=== PATIENT | male | born 2000 | race African-American/Black ===

== ENCOUNTER 2018-09-05 21:23 | Emergency (ER) | payer SELFPAY ==
[2018-09-05] MEDS ORDERED: cefTRIAXone SODIUM 250 MG INJ IM ONE (21:57)
[2018-09-05] MEDS ORDERED: AZITHROMYCIN 250 MG TABLET PO ONE (21:58)
--- NOTE | 2018-09-05 22:02 | ED Physician Documentation ---
General Adult - HISTORIAN Historian: patient - HPI Stated Complaint: burning with urination blood in urine Chief Complaint: General Adult Onset: days ago Timing: still present Severity: moderate Further Comments: yes (Pt is a 18 yo male with dysuria. Pt describes having had some hematuria also. No fever. No n/v.) - ROS CONST: no problems EYES/ENT: none CVS/RESP: none GI/: problems urinating MS/SKIN/LYMPH: none - PAST HX Past History: asthma Allergies/Adverse Reactions: Allergies Allergy/AdvReac Type Severity Reaction Status Date / Time No Known Allergies Allergy Verified 09/05/18 21:45 Home Medications: Ambulatory Orders Medication Instructions Recorded Sulfamethoxazole/Trimethoprim 1 each PO Q12H #10 tablet 09/05/18 [Bactrim Ds] - SOCIAL HX Smoking History: non-smoker - FAMILY HX Family History: No - VITAL SIGNS Vital Signs: Vital Signs Temp Pulse Resp BP Pulse Ox 98.4 F 83 16 155/90 98 09/05/18 21:23 09/05/18 21:23 09/05/18 21:23 09/05/18 21:23 09/05/18 21:23 - REVIEWED ASSESSMENTS Nursing Assessment Reviewed: Yes Vitals Reviewed: Yes Progress - Progress Progress: Rocephin 1 gm IM (with lidocaine) Azithromycin 1000 mg po x 1. GC/Chlamydia - pending Rx Bactrim DS bid x 5 days. Push fluids. ED Results Lab/Radiology - Orders Orders: ED Orders Category Date Time Status Azithromycin [Zithromax] Med 09/05/18 21:58 Once 1,000 mg PO NOW ONE cefTRIAXone SODIUM [Rocephin] Med 09/05/18 21:57 Once 250 mg IM NOW ONE General Adult Physical Exam - PHYSICAL EXAM GENERAL APPEARANCE: mild distress EENT: pharynx normal NECK: normal inspection, supple RESPIRATORY: no resp distress, chest non-tender, breath sounds normal CVS: reg rate & rhythm, heart sounds normal ABDOMEN: soft, no organomegaly, normal bowel sounds BACK: normal inspection, no CVA tenderness SKIN: warm/dry, normal color EXTREMITIES: non-tender, normal range of motion, no evidence of injury, no edema NEURO: oriented X3, CN's nml as tested, motor nml, sensation nml Discharge Clincal Impression: Dysuria Prescriptions: Sulfamethoxazole/Trimethoprim [Bactrim Ds] 1 each PO Q12H #10 tablet Referrals: Primary Doctor,No [Primary Care Provider] - Condition: Good Disposition: 01 HOME, SELF-CARE Decision to Admit: NO Decision Time: 22:30
[2018-09-05] MEDS ORDERED: LIDOCAINE HCL 1% PF 50MG/5ML AMP (IM/SUTURE/PAIN CLINIC) IJ ONE (22:03)
[2018-09-05] MEDS ORDERED: PHARMACY KEY 1 EACH EACH MC ONE (22:08)
[2018-09-05 22:44] VITALS: BP 156/89
[2018-09-07 07:48] LABS: APPEARANCE,URINE CLEAR (CLEAR); COLOR,URINE YELLOW (YELLOW); OCCULT BLOOD,URINE NEGATIVE (NEGATIVE)
[2018-09-07 07:49] LABS: UROBILINOGEN URINE 0.2 Eu (0.2-1.0)
== END 2018-09-05 22:35 | disposition home or self-care (01) ==
LOC: ED 21:23
DX: R30.0 Dysuria (principal)
CPT/HCPCS: 81002; 96372; 99282; 99283; J0696